=== PATIENT | male | born 1950 | race Caucasian/White ===

== ENCOUNTER 2017-05-30 06:37 | Day surgery (SDC) | payer MEDICARE, BC ==
[~2017-05-30] VITALS: Ht 175.3 cm; Wt 122.7 kg
[~2017-05-30 06:37] MED LIST: ALBU90OI; ALLERCLEAR D-21 EACH PO; ASPI325; ASPI81EC; ATOR40TA; Ativan0.5 MG PO; BACL10 PO; BETAPACE PO; BUDE6HFA INH; CENTRAVITES PO; CEPH500 PO; CLOP75; DICY20 PO; DILTIAZEM 24HR180 M1 PO; DOCU100 PO; DULO30 PO; Dazidox10 MG PO; ELIQUIS5 MG PO; FISH1000 PO; FLONASE ALLERG9.9 ML NS; FLUSAL2505; FLUT.05NI; FLUT44OIA IH; GABA300 PO; HYDACE5 PO; Hair, Skin & N1 EACH PO; LOSA25 PO; METO10 PO; METO50ER PO; MSM1000 MG PO; MULVITMIND PO; NITR100CA PO; OMEP10ER PO; OMEP20ER PO; OXYACE5T PO; OXYACE7.5T PO; PHENA100 PO; PRAVASTATIN SOD10 MG PO; PRED10; PROM25 PO; Percocet 5-3251 EACH PO; Q-Tussin100 MG/5 M PO; SOTO80 PO; Sotalol120 MG PO; TADALAFIL; Tambocor100 MG; Vitamin B-1250 MC1 PO; WARF1; [UNRECOGNIZED DRUG - REMARK]
[2017-05-30] MEDS ORDERED: Vibramycin100 MG PO (15:52)
== END 2017-05-30 13:21 | disposition home or self-care (01) ==
LOC: ORSCSDS 06:37
PROVIDERS: Otolaryngology
PROC: 09DV4ZZ Extraction of Left Ethmoid Sinus, Percutaneous Endoscopic Approach (ICD-10-PCS; principal; 2017-05-30 08:00)
PROC: 8E09XBZ Computer Assisted Procedure of Head and Neck Region (ICD-10-PCS; principal; 2017-05-30 08:00)
PROC: 09DU4ZZ Extraction of Right Ethmoid Sinus, Percutaneous Endoscopic Approach (ICD-10-PCS; principal; 2017-05-30 08:00)
DX: J33.0 Polyp of nasal cavity (principal); J32.4 Chronic pansinusitis; I10 Essential (primary) hypertension; I25.10 Atherosclerotic heart disease of native coronary artery without angina pectoris; G47.33 Obstructive sleep apnea (adult) (pediatric); E66.01 Morbid (severe) obesity due to excess calories; Z68.41 Body mass index [BMI] 40.0-44.9, adult; Z79.899 Other long term (current) drug therapy
CPT/HCPCS: 88305; 88311; C2625; J1100; J1885; J2250; J2370; J2405; J2710; J3010; J3301; J7120

== ENCOUNTER 2017-05-30 13:22 | Emergency (ER) | payer MEDICARE, BC ==
[~2017-05-30] VITALS: Ht 175.3 cm; Wt 122.5 kg
[2017-05-30 14:28] LABS: BASOPHILS ABSOLUTE AUTO 0.02 K/mm3 (0.00-0.23); BASOPHILS PERCENT AUTO 0 % (0-2); EOSINOPHILS ABSOLUTE AUTO 0.01 K/mm3 (0.00-0.68); EOSINOPHILS PERCENT AUTO 0 % (0-6); Hematocrit 40.9 % (37.0-53.0); Hemoglobin 13.6 g/dL (13.5-17.5); IMMATURE GRAN ABSOLUTE AUTO 0.14 K/mm3 (0.00-0.10); IMMATURE GRAN PERCENT AUTO 1 % (0-1); LYMPHOCYTES ABSOLUTE AUTO 0.58 K/mm3 (0.84-5.20); LYMPHOCYTES PERCENT AUTO 5 % (21-46); MONOCYTES ABSOLUTE AUTO 0.42 K/mm3 (0.16-1.47); MONOCYTES PERCENT AUTO 4 % (4-13); Mean Corpuscular HGB 31.1 pg (26.0-34.0); Mean Corpuscular HGB Conc 33.3 g/dL (31.5-36.5); Mean Corpuscular Volume 94 fL (80-100); Mean Platelet Volume 9.9 fL (9.1-12.4); NEUTROPHILS ABSOLUTE AUTO 10.33 K/mm3 (1.96-9.15); NEUTROPHILS PERCENT AUTO 90 % (41-73); Platelet Count 242 K/mm3 (150-400); RDW Coefficient Variation 12.5 % (11.7-14.2); Red Blood Cell Count 4.37 M/mm3 (4.30-5.90)
[2017-05-30 14:47] LABS: Alanine Aminotransfer (ALT/SGP 54 U/L (12-78); Albumin/Globulin Ratio 0.9 (0.8-1.8); Alk Phos 76 U/L (50-136); Anion Gap 8 mmol/L (6-16); Aspartate Aminotrans (AST/SGOT 11 U/L (12-37); Bilirubin, Total 0.5 mg/dL (0.1-1.0); Blood Urea Nitrogen 18 mg/dL (8-24); Bun/Creatinine Ratio 18.2 (12.0-20.0); CO2, Blood 28 mmol/L (21-32); Calcium, Blood 7.8 mg/dL (8.5-10.1); Chloride, Blood 103 mmol/L (98-108); Creatinine, Blood 0.99 mg/dL (0.60-1.20); Globulin, Blood 3.3 g/dL (2.2-4.0); Glomerular Filtration Rate >60 (60-); Glucose, Blood 170 mg/dL (70-99); Sodium, Blood 139 mmol/L (136-145); Total Protein, Blood 6.3 g/dL (6.4-8.2); Troponin I <0.015 ng/mL (0.000-0.040)
[2017-05-30] MEDS ORDERED: Vibramycin100 MG PO (15:52)
== END 2017-05-30 16:10 | disposition home or self-care (01) ==
LOC: ER 13:22
PROVIDERS: Emergency Medicine
DX: J18.9 Pneumonia, unspecified organism (principal); R09.02 Hypoxemia; I10 Essential (primary) hypertension; I48.91 Unspecified atrial fibrillation; Z91.010 Allergy to peanuts; Z91.048 Other nonmedicinal substance allergy status; Z79.899 Other long term (current) drug therapy
CPT/HCPCS: 36415; 71046; 80053; 84484; 85025; 93005; 93010; 99283

== ENCOUNTER 2018-05-23 08:10 | Inpatient (IN) | payer MEDICARE, BC ==
[~2018-05-23] VITALS: Ht 185.4 cm; Wt 123.4 kg
[~2018-05-23 08:10] MED LIST changes: +AZIT250 PO; +Omeprazole20 M1 PO; +Vibramycin100 MG PO
--- NOTE | 2018-05-23 08:48 | NUR ---
History, Chart, Medications and Allergies reviewed before start of procedure. Patient confirms NPO status and agrees with scheduled surgery. Patinet confirms no known drug allergies. Patient reports completing Chlorhexadine shower X4 days prior to admission to hospital.
--- NOTE | 2018-05-23 09:00 | NUR ---
Lungs clear T/O to Auscultation.
--- NOTE | 2018-05-23 10:30 | NUR ---
05/23/18 1030 Perfecto Miller 3GM GIVEN IVPB AT 0956
--- NOTE | 2018-05-23 12:25 | NUR ---
WAITING FOR XRAYREPORT TO SYBIL PT WITH EYES CLOSED RESP E/U
--- NOTE | 2018-05-23 13:18 | NUR ---
PT ARRIVED TO THE ROOM AT APPROXIMATELY 1240. PT ALERT AND ORIENTED UPON ARRIVAL TO THE ROOM. PT DENIES PAIN AT THIS TIME. HE IS ABLE TO WIGGLE HIS TOES BUT CONTINUES TO HAVE DECREASED SENSATION. WILL CONTINUE TO MONITOR.
--- NOTE | 2018-05-23 13:43 | NUR ---
PT MEDICATED PER EMAR ORDERS. EATING JELLO AND CRACKERS. SPOKE WITH ON PHONE. CALL LIGHT IN REACH. WILL CONT TO MONITOR.
--- NOTE | 2018-05-23 17:06 | NUR ---
SHIFT SUMMARY PAIN HAS BEEN MANAGED WITH PO PAIN MEDICATION POST OP. PT IS TOLERATING PO. PT STILL REPORTS SOME TINGLING TO BLE BUT MOVES THEM WELL. PT WILL HAVE THERAPY TOMORROW MORNING FOR THE FIRST TIME. PT HAS VOIDED X1 AND WAS INCONTINENET AFTER REFUSING A STRAIGHT CATH. VSS. REPORT GIVEN TO SARATH BLACKMON.
[2018-05-24 05:38] LABS: BASOPHILS ABSOLUTE AUTO 0.01 K/mm3 (0.00-0.23); BASOPHILS PERCENT AUTO 0 % (0-2); EOSINOPHILS ABSOLUTE AUTO 0.11 K/mm3 (0.00-0.68); EOSINOPHILS PERCENT AUTO 2 % (0-6); Hematocrit 38.6 % (37.0-53.0); IMMATURE GRAN ABSOLUTE AUTO 0.03 K/mm3 (0.00-0.10); IMMATURE GRAN PERCENT AUTO 0 % (0-1); LYMPHOCYTES ABSOLUTE AUTO 1.12 K/mm3 (0.84-5.20); LYMPHOCYTES PERCENT AUTO 15 % (21-46); MONOCYTES ABSOLUTE AUTO 0.94 K/mm3 (0.16-1.47); MONOCYTES PERCENT AUTO 13 % (4-13); Mean Corpuscular HGB Conc 33.7 g/dL (31.5-36.5); Mean Platelet Volume 10.1 fL (9.1-12.4); NEUTROPHILS ABSOLUTE AUTO 5.34 K/mm3 (1.96-9.15); NEUTROPHILS PERCENT AUTO 71 % (41-73); Platelet Count 173 K/mm3 (150-400); RDW Coefficient Variation 12.2 % (11.7-14.2); RDW Standard Deviation 40.9 fL (35.1-46.3); White Blood Cell Count 7.55 K/mm3 (4.00-11.30)
[2018-05-24 05:40] LABS: Mean Corpuscular Volume 92 fL (80-100)
[2018-05-24 06:00] LABS: Anion Gap 3 mmol/L (6-16); Blood Urea Nitrogen 13 mg/dL (8-24); Bun/Creatinine Ratio 11.7 (12.0-20.0); CO2, Blood 30 mmol/L (21-32); Calcium, Blood 7.9 mg/dL (8.5-10.1); Chloride, Blood 104 mmol/L (98-108); Creatinine, Blood 1.11 mg/dL (0.60-1.20); Glomerular Filtration Rate >60 (60-); Glucose, Blood 121 mg/dL (70-99); Potassium, Blood 4.1 mmol/L (3.5-5.5); Sodium, Blood 137 mmol/L (136-145)
--- NOTE | 2018-05-24 10:08 | NUR ---
DR CONNOR NOTIFIED OF PT "FEELING LIKE GOING TO PASS OUT". VSS. PT SINCE THEN PT HAS HAD NAP AND FEELS BETTER AT THIS TIME AFTER HAVING NAUSEA MEDICATION AND TAKING SHORT NAP. REPORTS TO INCREASE IVF TO 500/HR FOR ONE HOUR THEN RESUME IVF RATE.
--- NOTE | 2018-05-24 10:14 | NUR ---
IVF INCREASED ORDERED.
--- NOTE | 2018-05-24 12:21 | NUR ---
PT REPORTED TO HAVE NAUSEA AND FEEL DIZZY WITH THERAPY. PT BEEN BACK TO BED. IVF BACK IN PLACE. PT LYING DOWN. PT REPORTS FEELING BETTER. DENIES ANY NAUSEA OR DIZZINESS AT THIS TIME.
--- NOTE | 2018-05-25 06:32 | NUR ---
SHIFT SUMMARY: PT POD #2 RT TKA. PAIN MANAGED WITH SCHED TORADOL AND TYLENOL. NOT GIVEN OXY BECAUSE C/O NAUSEA AND DIZZINESS. GIVEN ZOFRAN ONCE. OOB W/FWW. OLGA ACTIVITY WELL. USING URINAL. VOIDING ADEQUATE AMT. SALINE LOCKED. OLGA REG DIET. HEMOVAC DRAINING SANGUINOUS FLUID. TOTAL OUTPUT OF 78 ML.
--- NOTE | 2018-05-25 09:41 | NUR ---
JACOB HELD PER DR CONNOR.
[2018-05-25 10:11] LABS: BASOPHILS ABSOLUTE AUTO 0.02 K/mm3 (0.00-0.23); BASOPHILS PERCENT AUTO 0 % (0-2); EOSINOPHILS ABSOLUTE AUTO 0.28 K/mm3 (0.00-0.68); EOSINOPHILS PERCENT AUTO 4 % (0-6); Hematocrit 36.6 % (37.0-53.0); Hemoglobin 12.3 g/dL (13.5-17.5); IMMATURE GRAN ABSOLUTE AUTO 0.03 K/mm3 (0.00-0.10); IMMATURE GRAN PERCENT AUTO 1 % (0-1); LYMPHOCYTES ABSOLUTE AUTO 1.11 K/mm3 (0.84-5.20); LYMPHOCYTES PERCENT AUTO 17 % (21-46); MONOCYTES ABSOLUTE AUTO 0.85 K/mm3 (0.16-1.47); MONOCYTES PERCENT AUTO 13 % (4-13); Mean Corpuscular HGB 31.3 pg (26.0-34.0); Mean Corpuscular HGB Conc 33.6 g/dL (31.5-36.5); Mean Corpuscular Volume 93 fL (80-100); Mean Platelet Volume 9.9 fL (9.1-12.4); NEUTROPHILS ABSOLUTE AUTO 4.36 K/mm3 (1.96-9.15); NEUTROPHILS PERCENT AUTO 66 % (41-73); Platelet Count 186 K/mm3 (150-400); RDW Coefficient Variation 12.1 % (11.7-14.2); RDW Standard Deviation 41.9 fL (35.1-46.3); Red Blood Cell Count 3.93 M/mm3 (4.30-5.90); White Blood Cell Count 6.65 K/mm3 (4.00-11.30)
[2018-05-25] MEDS ORDERED: HYDR1TAB94 PO (11:36)
--- NOTE | 2018-05-25 14:20 | NUR ---
OTHER RN MARY ASSUMING CARE OF PT AT THIS TIME, REPORT BEEN GIVEN.
--- NOTE | 2018-05-25 15:22 | NUR ---
pt discharged to home with spouse. Instructions reviewed. Dressings to knee and drain site remain clean and dry at this time.
== END 2018-05-25 15:02 | disposition home or self-care (01) | DRG 470 ==
LOC: ORSCMMR 08:10 → ORD 10:00 → ORSCMMR 10:00 → SURS 13:17 → ORSCMMR 05-24 08:10 → SURS 05-24 08:10
PROVIDERS: ADMIT Orthopaedic Surgery
PROC: 0SRC0JA Replacement of Right Knee Joint with Synthetic Substitute, Uncemented, Open Approach (ICD-10-PCS; principal; 2018-05-23 10:00)
DX: M17.11 Unilateral primary osteoarthritis, right knee (principal); I48.91 Unspecified atrial fibrillation; I25.10 Atherosclerotic heart disease of native coronary artery without angina pectoris; E78.5 Hyperlipidemia, unspecified; K21.9 Gastro-esophageal reflux disease without esophagitis; I10 Essential (primary) hypertension; G47.33 Obstructive sleep apnea (adult) (pediatric); E66.9 Obesity, unspecified; Z68.36 Body mass index [BMI] 36.0-36.9, adult; Z95.5 Presence of coronary angioplasty implant and graft; Z91.010 Allergy to peanuts; Z79.01 Long term (current) use of anticoagulants; Z79.899 Other long term (current) drug therapy; Z87.891 Personal history of nicotine dependence
CPT/HCPCS: 36415; 73560-RT; 80048; 85025; 86850; 86900; 86901; 88300; 97110; 97116; 97162; 97530; C1776; J0171; J0690; J0735; J1170; J1885; J2250; J2405; J2795; J7120

== ENCOUNTER 2020-06-10 14:28 | Emergency (ER) | payer MEDICARE, BC ==
[~2020-06-10] VITALS: Ht 175.3 cm; Wt 120.2 kg
[~2020-06-10 14:28] MED LIST changes: +HYDR1TAB94 PO
[2020-06-10 15:35] LABS: BASOPHILS ABSOLUTE AUTO 0.02 K/mm3 (0.00-0.23); BASOPHILS PERCENT AUTO 0 % (0-2); EOSINOPHILS ABSOLUTE AUTO 0.25 K/mm3 (0.00-0.68); EOSINOPHILS PERCENT AUTO 5 % (0-6); Hematocrit 45.4 % (37.0-53.0); Hemoglobin 15.4 g/dL (13.5-17.5); IMMATURE GRAN ABSOLUTE AUTO 0.01 K/mm3 (0.00-0.10); IMMATURE GRAN PERCENT AUTO 0 % (0-1); LYMPHOCYTES ABSOLUTE AUTO 1.63 K/mm3 (0.84-5.20); LYMPHOCYTES PERCENT AUTO 30 % (21-46); MONOCYTES PERCENT AUTO 9 % (4-13); Mean Corpuscular HGB 31.3 pg (26.0-34.0); Mean Corpuscular HGB Conc 33.9 g/dL (31.5-36.5); Mean Corpuscular Volume 92 fL (80-100); NEUTROPHILS ABSOLUTE AUTO 3.11 K/mm3 (1.96-9.15); NEUTROPHILS PERCENT AUTO 56 % (41-73); Platelet Count 210 K/mm3 (150-400); RDW Coefficient Variation 11.9 % (11.7-14.2); RDW Standard Deviation 41.1 fL (35.1-46.3); Red Blood Cell Count 4.92 M/mm3 (4.30-5.90); White Blood Cell Count 5.52 K/mm3 (4.00-11.30)
[2020-06-10 15:59] LABS: Alanine Aminotransfer (ALT/SGP 43 U/L (12-78); Albumin, Blood 3.4 g/dL (3.4-5.0); Alk Phos 93 U/L (50-136); Anion Gap 5 mmol/L (6-16); Aspartate Aminotrans (AST/SGOT 25 U/L (12-37); Bilirubin, Total 0.8 mg/dL (0.1-1.0); Blood Urea Nitrogen 15 mg/dL (8-24); CO2, Blood 28 mmol/L (21-32); Calcium, Blood 8.5 mg/dL (8.5-10.1); Chloride, Blood 109 mmol/L (98-108); Creatinine, Blood 1.07 mg/dL (0.60-1.20); Globulin, Blood 3.4 g/dL (2.2-4.0); Glomerular Filtration Rate >60 (60-); Glucose, Blood 104 mg/dL (70-99); Potassium, Blood 3.9 mmol/L (3.5-5.5); Sodium, Blood 142 mmol/L (136-145); Total Protein, Blood 6.8 g/dL (6.4-8.2); Troponin I <0.015 ng/mL (0.000-0.040)
== END 2020-06-10 19:29 | disposition left against medical advice (07) ==
LOC: ER 14:28
PROVIDERS: Physician Assistant
DX: R20.2 Paresthesia of skin (principal); M62.81 Muscle weakness (generalized); Z53.21 Procedure and treatment not carried out due to patient leaving prior to being seen by health care provider; Z79.01 Long term (current) use of anticoagulants; Z79.891 Long term (current) use of opiate analgesic; Z79.899 Other long term (current) drug therapy
CPT/HCPCS: 36415; 70450; 80053; 84484; 85025; 93005; 93010; 99284-25

== ENCOUNTER 2020-11-21 07:10 | Observation (INO) | payer MEDICARE, BC ==
[~2020-11-21] VITALS: Ht 175.3 cm; Wt 113.4 kg
[2020-11-21 07:41] LABS: BASOPHILS ABSOLUTE AUTO 0.01 K/mm3 (0.00-0.23); BASOPHILS PERCENT AUTO 0 % (0-2); EOSINOPHILS ABSOLUTE AUTO 0.01 K/mm3 (0.00-0.68); EOSINOPHILS PERCENT AUTO 0 % (0-6); Hematocrit 44.1 % (37.0-53.0); Hemoglobin 14.8 g/dL (13.5-17.5); IMMATURE GRAN ABSOLUTE AUTO 0.01 K/mm3 (0.00-0.10); IMMATURE GRAN PERCENT AUTO 0 % (0-1); LYMPHOCYTES ABSOLUTE AUTO 0.69 K/mm3 (0.84-5.20); LYMPHOCYTES PERCENT AUTO 25 % (21-46); MONOCYTES ABSOLUTE AUTO 0.15 K/mm3 (0.16-1.47); MONOCYTES PERCENT AUTO 6 % (4-13); Mean Corpuscular HGB Conc 33.6 g/dL (31.5-36.5); Mean Corpuscular Volume 93 fL (80-100); Mean Platelet Volume 9.6 fL (9.1-12.4); NEUTROPHILS ABSOLUTE AUTO 1.85 K/mm3 (1.96-9.15); NEUTROPHILS PERCENT AUTO 68 % (41-73); Platelet Count 150 K/mm3 (150-400); RDW Coefficient Variation 12.1 % (11.7-14.2); RDW Standard Deviation 41.6 fL (35.1-46.3); Red Blood Cell Count 4.77 M/mm3 (4.30-5.90); White Blood Cell Count 2.72 K/mm3 (4.00-11.30)
[2020-11-21 08:09] LABS: Albumin/Globulin Ratio 0.8 (0.8-1.8); Bilirubin, Total 0.5 mg/dL (0.1-1.0); Bun/Creatinine Ratio 9.7 (12.0-20.0); Calcium, Blood 7.9 mg/dL (8.5-10.1); Creatinine, Blood 1.24 mg/dL (0.60-1.20); Globulin, Blood 3.8 g/dL (2.2-4.0); Potassium, Blood 3.5 mmol/L (3.5-5.5); Total Protein, Blood 6.8 g/dL (6.4-8.2)
[2020-11-21 08:12] LABS: C-Reactive Protein, High Sens. 31.9 mg/L (0.000-3.000)
[2020-11-21 08:30] LABS: SARS-Cov-2 (COVID-19) PCR, MMC POSITIVE (NEGATIVE)
--- NOTE | 2020-11-21 18:13 | NUR ---
PT PLEASANT TODAY. NO C/O CHEST PAIN OR PRESSURE. SENIOR OPERATIONS MANAGER IN TO SEE THIS AFT. DR STEPHANIE WILL BE REVIEWING FILES AND WILL PLACE ORDERS IF NECESSARY. DR FISHER AND PT STATE JUST HAD ON 3RD(?) DC DR FISHER. REQUEST HE ADVISE FUR SURE. PT ALSO STATES USES CPAP WITH 4 L CPAP NITES. CALLED RT FOR SETUP. BED IN LOW POSITION, CALL LITE IN REACH, CALLS APPROP
--- NOTE | 2020-11-21 18:34 | NUR ---
PT PLEASANT TODAY SINCE ADMIT. DOES STATES FEELS SOME BETTER. IS DOUGLAS. HEARING AIDES AT HOME. 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 IS NOT ON O2. DID CALL RT FOR CONT BIOX PLACEMENT. PT STATES IS STILL SOME WEAK IN LEGS. O2 SATS WNL. ON RA. BIG ISSUE FOR LIZANDRO HAS BEEN HIS DRY COUGH. HURTS RIBS. TRIED THE CODEINE COUGH MED. STATES NOT MUCH BETTER. TRIED THE BRIAN PEARLS. PENDING RESULTS FROM PT. HEADACHE SOME BETTER WITH THE TYLENOL. BED IN LOW POSITION, CALL LITE IN REACH, CALLS APPROP
[2020-11-22 05:35] LABS: Hematocrit 40.5 % (37.0-53.0); Hemoglobin 13.4 g/dL (13.5-17.5); Mean Corpuscular HGB 30.7 pg (26.0-34.0); Mean Corpuscular HGB Conc 33.1 g/dL (31.5-36.5); Mean Corpuscular Volume 93 fL (80-100); Platelet Count 171 K/mm3 (150-400); RDW Coefficient Variation 12.1 % (11.7-14.2); RDW Standard Deviation 41.3 fL (35.1-46.3); Red Blood Cell Count 4.37 M/mm3 (4.30-5.90)
[2020-11-22 05:58] LABS: Anion Gap 6 mmol/L (6-16); Blood Urea Nitrogen 18 mg/dL (8-24); CO2, Blood 24 mmol/L (21-32); Calcium, Blood 8.2 mg/dL (8.5-10.1); Chloride, Blood 108 mmol/L (98-108); Glomerular Filtration Rate >60 (60-); Glucose, Blood 124 mg/dL (70-99); Potassium, Blood 4.4 mmol/L (3.5-5.5); Sodium, Blood 138 mmol/L (136-145)
--- NOTE | 2020-11-22 09:30 | NUR ---
PT PLEASANT COOP A/O. STATES IS IMPROVING. STILL PERSISTANT HACKING COUGH. MED WITH BRIAN PEARLS AND COUGH DROPS. PT STATES SOME HELP. H/R IRREG, NO MURMER NOTED. PER TELE AFIB AT 93. LUNGS CLEAR UPPER CRACKLES BASES AND MID. ON R/A. O2 STABLE >95%. RESP EASY, UNLABORED. BT X4 LAST BM YEST OR DAY BEFORE. VIODS BATHROOM. INDEPENDANT IN ROOM. BED IN LOW POSITION, CALL LITE IN REACH, CALLS APPROP
[2020-11-22] MEDS ORDERED: DEXA6 PO (11:58)
[2020-11-22] MEDS ORDERED: Tessalon200 MG PO (11:58)
--- NOTE | 2020-11-22 15:33 | NUR ---
DISCHARGE REVIEWED WITHPT VERBALIZED UNDERSTANDING MEDS AND APTS. IV PULLED INTACT. TELE REMOVED AND RETURNED . WHEELED PT TO DOOR AT 1315
== END 2020-11-22 15:12 | disposition home or self-care (01) ==
LOC: ER 07:10 → MEDS 07:11 → ERHOLD 07:11 → ER 09:11 → ERHOLD 09:11 → MEDS 12:07
PROVIDERS: Emergency Medicine; Nurse Practitioner Acute Care; ADMIT Internal Medicine
DX: U07.1 COVID-19 (principal); J12.82 Pneumonia due to coronavirus disease 2019; N17.9 Acute kidney failure, unspecified; G47.33 Obstructive sleep apnea (adult) (pediatric); I48.91 Unspecified atrial fibrillation; E78.5 Hyperlipidemia, unspecified; I25.10 Atherosclerotic heart disease of native coronary artery without angina pectoris; Z95.5 Presence of coronary angioplasty implant and graft; Z79.899 Other long term (current) drug therapy; Z79.01 Long term (current) use of anticoagulants; Z88.8 Allergy status to other drugs, medicaments and biological substances
CPT/HCPCS: 36415; 71045; 80048; 80053; 82728; 83615; 83735; 84443; 84484; 85025; 85027; 86141; 93005; 93010; 94660; 94762; 96365; 96375; 96376; 99285-25; A9270; G0378; J1100; J7030; J7040; U0004

== ENCOUNTER 2021-06-11 10:53 | Emergency (ER) | payer MEDICARE, BC ==
[~2021-06-11] VITALS: Ht 175.3 cm; Wt 117.5 kg
[~2021-06-11 10:53] MED LIST changes: +DEXA6 PO; +Tessalon200 MG PO
[2021-06-11 11:44] LABS: BASOPHILS ABSOLUTE AUTO 0.02 K/mm3 (0.00-0.23); BASOPHILS PERCENT AUTO 0 % (0-2); EOSINOPHILS ABSOLUTE AUTO 0.19 K/mm3 (0.00-0.68); EOSINOPHILS PERCENT AUTO 4 % (0-6); Hematocrit 42.9 % (37.0-53.0); Hemoglobin 14.6 g/dL (13.5-17.5); IMMATURE GRAN ABSOLUTE AUTO 0.01 K/mm3 (0.00-0.10); IMMATURE GRAN PERCENT AUTO 0 % (0-1); LYMPHOCYTES ABSOLUTE AUTO 1.09 K/mm3 (0.84-5.20); LYMPHOCYTES PERCENT AUTO 21 % (21-46); MONOCYTES ABSOLUTE AUTO 0.65 K/mm3 (0.16-1.47); MONOCYTES PERCENT AUTO 13 % (4-13); Mean Corpuscular HGB 30.5 pg (26.0-34.0); Mean Corpuscular Volume 90 fL (80-100); Mean Platelet Volume 9.5 fL (9.1-12.4); NEUTROPHILS ABSOLUTE AUTO 3.22 K/mm3 (1.96-9.15); NEUTROPHILS PERCENT AUTO 62 % (41-73); Platelet Count 218 K/mm3 (150-400); RDW Standard Deviation 42.8 fL (35.1-46.3); Red Blood Cell Count 4.78 M/mm3 (4.30-5.90); White Blood Cell Count 5.18 K/mm3 (4.00-11.30)
[2021-06-11 12:01] LABS: Alanine Aminotransfer (ALT/SGP 32 U/L (12-78); Albumin, Blood 3.4 g/dL (3.4-5.0); Albumin/Globulin Ratio 1.1 (0.8-1.8); Alk Phos 66 U/L (50-136); Anion Gap 3 mmol/L (6-16); Aspartate Aminotrans (AST/SGOT 16 U/L (12-37); Bilirubin, Total 0.6 mg/dL (0.1-1.0); Blood Urea Nitrogen 15 mg/dL (8-24); Bun/Creatinine Ratio 13.9 (12.0-20.0); CO2, Blood 29 mmol/L (21-32); Calcium, Blood 8.8 mg/dL (8.5-10.1); Chloride, Blood 109 mmol/L (98-108); Creatinine, Blood 1.08 mg/dL (0.60-1.20); Globulin, Blood 3.1 g/dL (2.2-4.0); Glomerular Filtration Rate >60 (60-); Glucose, Blood 102 mg/dL (70-99); Potassium, Blood 3.8 mmol/L (3.5-5.5); Sodium, Blood 141 mmol/L (136-145); Total Protein, Blood 6.5 g/dL (6.4-8.2)
== END 2021-06-11 13:15 | disposition home or self-care (01) ==
LOC: ER 10:53
PROVIDERS: Emergency Medicine
DX: M47.812 Spondylosis without myelopathy or radiculopathy, cervical region (principal); I25.10 Atherosclerotic heart disease of native coronary artery without angina pectoris; I48.91 Unspecified atrial fibrillation; I10 Essential (primary) hypertension; F17.210 Nicotine dependence, cigarettes, uncomplicated; Z79.01 Long term (current) use of anticoagulants; Z79.899 Other long term (current) drug therapy; Z88.8 Allergy status to other drugs, medicaments and biological substances
CPT/HCPCS: 36415; 71045; 80053; 85025; 93005; 93010; 99284-25

== ENCOUNTER → 2021-10-07 | Outpatient (CLI) | payer MEDICARE, BC | LOC: PLD 13:51 → LAB SHORT 13:51 | DX: D48.5 Neoplasm of uncertain behavior of skin (principal) | CPT/HCPCS: 88341; 88342 ==

== ENCOUNTER 2022-03-27 19:11 | Emergency (ER) | payer MEDICARE, BC ==
[~2022-03-27] VITALS: Ht 175.3 cm; Wt 120.2 kg
[2022-03-27 19:57] LABS: BASOPHILS ABSOLUTE AUTO 0.03 K/mm3 (0.00-0.23); BASOPHILS PERCENT AUTO 0 % (0-2); EOSINOPHILS ABSOLUTE AUTO 0.04 K/mm3 (0.00-0.68); EOSINOPHILS PERCENT AUTO 1 % (0-6); Hematocrit 42.1 % (37.0-53.0); Hemoglobin 14.6 g/dL (13.5-17.5); IMMATURE GRAN ABSOLUTE AUTO 0.03 K/mm3 (0.00-0.10); IMMATURE GRAN PERCENT AUTO 0 % (0-1); LYMPHOCYTES ABSOLUTE AUTO 1.42 K/mm3 (0.84-5.20); LYMPHOCYTES PERCENT AUTO 17 % (21-46); MONOCYTES ABSOLUTE AUTO 0.78 K/mm3 (0.16-1.47); MONOCYTES PERCENT AUTO 10 % (4-13); Mean Corpuscular HGB 31.6 pg (26.0-34.0); Mean Corpuscular HGB Conc 34.7 g/dL (31.5-36.5); Mean Corpuscular Volume 91 fL (80-100); Mean Platelet Volume 9.6 fL (9.1-12.4); NEUTROPHILS ABSOLUTE AUTO 5.88 K/mm3 (1.96-9.15); NEUTROPHILS PERCENT AUTO 72 % (41-73); Platelet Count 218 K/mm3 (150-400); RDW Coefficient Variation 12.7 % (11.7-14.2); RDW Standard Deviation 41.6 fL (35.1-46.3); Red Blood Cell Count 4.62 M/mm3 (4.30-5.90); White Blood Cell Count 8.18 K/mm3 (4.00-11.30)
[2022-03-27 20:06] LABS: Albumin, Blood 3.4 g/dL (3.4-5.0); Albumin/Globulin Ratio 1.1 (0.8-1.8); Bilirubin, Total 0.4 mg/dL (0.1-1.0); Bun/Creatinine Ratio 14.9 (12.0-20.0); Calcium, Blood 8.8 mg/dL (8.5-10.1); Creatinine, Blood 1.34 mg/dL (0.60-1.20); Globulin, Blood 3.1 g/dL (2.2-4.0); Potassium, Blood 4.2 mmol/L (3.5-5.5); Total Protein, Blood 6.5 g/dL (6.4-8.2)
== END 2022-03-27 22:48 | disposition home or self-care (01) ==
LOC: ER 19:11
PROVIDERS: Student in an Organized Health Care Education/Training Program
DX: R42 Dizziness and giddiness (principal); I48.91 Unspecified atrial fibrillation; Z79.899 Other long term (current) drug therapy; Z79.01 Long term (current) use of anticoagulants; Z88.8 Allergy status to other drugs, medicaments and biological substances; I25.10 Atherosclerotic heart disease of native coronary artery without angina pectoris; F17.210 Nicotine dependence, cigarettes, uncomplicated
CPT/HCPCS: 36415; 71045; 80053; 83735; 83880; 84484; 85025; 93005; 93010

== ENCOUNTER 2022-07-01 06:56 | Day surgery (SDC) | payer MEDICARE, BC ==
[~2022-07-01] VITALS: Ht 175.3 cm; Wt 121.9 kg
[2022-07-01] MEDS ORDERED: Crestor20 MG PO (07:18)
[2022-07-01] MEDS ORDERED: TYLENOL PM PO (07:22)
--- NOTE | 2022-07-01 10:05 | NUR ---
ASSUMED CARE OF PT. PT AWAKE AND ORIENTED, PLEASENT AND COOPERATIVE; DENIES PAIN POST PROCEDURE. MONITOR AFIB 60'S, B/P 162/110, SPO2 96% RA, AFEBRILE. R RADIAL NO SWELLING/HEMATOMA, TR BAND IN PLACE; RUE POSITIVE PLEUTH POST TR BAND PLACEMENT. L RADIAL NO SWELLING/HEMATOMA, TR BAND IN PLACE; LUE POSITIVE PLEUTH POST TR BAND PLACEMENT (SPOT CHECKED). PT HAS NATALYA WRIST IMMOBILIZERS IN PLACE.
--- NOTE | 2022-07-01 10:50 | NUR ---
DR DAVID NOTIFIED OF PT'S B/P, ORDERS RECEIVED; ADMINISTERED DILTIAZEM 180 MG AND LOSARTAN 25 MG.
[2022-07-01] MEDS ORDERED: FURO40 PO (11:00)
--- NOTE | 2022-07-01 11:50 | NUR ---
L AND R WRIST TR BANDS FULLY DEFLATED, NO SWELLING/HEMATOMAS AT SITE; WRIST IMMOBILIZERS REMAIN IN PLACE.
--- NOTE | 2022-07-01 12:25 | NUR ---
PT AMB TO BATHROOM, GAIT STEADY, VOIDED QS; SITES UNCHANGED WITH ACTIVITY. PT TAKING LUNCH WITHOUT ISSUE.
--- NOTE | 2022-07-01 12:26 | NUR ---
PATIENT UP AND OFF MONITOR TO THE RESTROOM. BACK TO RECLINER AND AND LUNCH SERVED. NO PAIN. NO BLEEDING FROM EITHER WRIST.
--- NOTE | 2022-07-01 12:50 | NUR ---
PT DRESSED SELF WITHOUT ISSUE, SITES UNCHANGED. NATALYA TR BANDS REMOVED, CLOTH DOTS AND WRIST IMMOBILIZERS PLACED; IV REMOVED-CANNULA INTACT. PT DECLINED SLING.
--- NOTE | 2022-07-01 13:02 | NUR ---
PT RECEIVED DISCHARGE INSTRUCTIONS, LAB ORDER, MED LIST AND AFTER CARE INSTRUCTIONS; VERBALIZED GOOD UNDERSTANDING. PT LEFT FACILITY VIA W/C, CONDITION STABLE.
== END 2022-07-01 14:12 | disposition home or self-care (01) ==
LOC: MHTC 06:56
DX: R07.89 Other chest pain (principal); R06.00 Dyspnea, unspecified; R00.2 Palpitations; I47.29 Other ventricular tachycardia; Z95.5 Presence of coronary angioplasty implant and graft; I25.42 Coronary artery dissection; E78.5 Hyperlipidemia, unspecified; F32.A Depression, unspecified; N18.31 Chronic kidney disease, stage 3a; I12.9 Hypertensive chronic kidney disease with stage 1 through stage 4 chronic kidney disease, or unspecified chronic kidney disease
CPT/HCPCS: 75710; 76937; 93458; 99152; 99153; A9270; C1769; C1887; C1894; J1644; J2250; J3010; J7030; J7050; Q9967

== ENCOUNTER 2022-08-24 09:05 | Observation (INO) | payer MEDICARE, BC ==
[~2022-08-24] VITALS: Ht 175.3 cm; Wt 122.5 kg
[~2022-08-24 09:05] MED LIST changes: +Crestor20 MG PO; +FURO40 PO; +TYLENOL PM PO
[2022-08-24 10:01] LABS: BASOPHILS ABSOLUTE AUTO 0.01 K/mm3 (0.00-0.23); BASOPHILS PERCENT AUTO 0 % (0-2); EOSINOPHILS ABSOLUTE AUTO 0.14 K/mm3 (0.00-0.68); EOSINOPHILS PERCENT AUTO 2 % (0-6); Hematocrit 40.6 % (37.0-53.0); Hemoglobin 13.8 g/dL (13.5-17.5); IMMATURE GRAN ABSOLUTE AUTO 0.02 K/mm3 (0.00-0.10); IMMATURE GRAN PERCENT AUTO 0 % (0-1); LYMPHOCYTES ABSOLUTE AUTO 1.45 K/mm3 (0.84-5.20); LYMPHOCYTES PERCENT AUTO 22 % (21-46); MONOCYTES ABSOLUTE AUTO 0.59 K/mm3 (0.16-1.47); MONOCYTES PERCENT AUTO 9 % (4-13); Mean Corpuscular Volume 91 fL (80-100); Mean Platelet Volume 9.7 fL (9.1-12.4); NEUTROPHILS ABSOLUTE AUTO 4.26 K/mm3 (1.96-9.15); NEUTROPHILS PERCENT AUTO 66 % (41-73); Platelet Count 182 K/mm3 (150-400); RDW Coefficient Variation 12.3 % (11.7-14.2); RDW Standard Deviation 40.7 fL (35.1-46.3); Red Blood Cell Count 4.45 M/mm3 (4.30-5.90); White Blood Cell Count 6.47 K/mm3 (4.00-11.30)
[2022-08-24 10:05] LABS: Albumin, Blood 3.2 g/dL (3.4-5.0); Albumin/Globulin Ratio 1.1 (0.8-1.8); Bilirubin, Total 0.7 mg/dL (0.1-1.0); Bun/Creatinine Ratio 15.7 (12.0-20.0); Creatinine, Blood 1.15 mg/dL (0.60-1.20); Globulin, Blood 2.9 g/dL (2.2-4.0); Potassium, Blood 3.7 mmol/L (3.5-5.5); Total Protein, Blood 6.1 g/dL (6.4-8.2)
[2022-08-24 17:29] VITALS: BP 140/89
--- NOTE | 2022-08-24 18:16 | NUR ---
PT A&OX4, CALLS APPROPRIATELY. ADMITTED FOR OBSERVATION B/C PT REPORT OF "CHEST PRESSURE...NOT PAIN". ARRIVED TO MEDICAL FLOOR FROM THE ED AT APPROXIMATELY 1730. PT REPORTS SOB WHEN LYING FLAT IN BED AND WHEN AMBULATORY. VITAL SIGNS STABLE, BUT PT REPORTS "FEELING VERY UNCOMFORTABLE WITH MY AFIB SITUATION". WILL CONTINUE PLAN OF CARE.
[2022-08-24 19:48] VITALS: BP 126/96
[2022-08-25 03:47] VITALS: BP 119/87
--- NOTE | 2022-08-25 03:52 | NUR ---
SHIFT UNREMARKABLE. PT TOOK 2100 MEDICATIONS WITHOUT DIFFICULTY AND HAS SLEPT THROUGH MOST OF REMAINDER OF SHIFT. PLEASANT, AOX4, COOPERATIVE WITH CARE. TELE ON THROUGHOUT SHIFT, NO EVENTS THUS FAR. CPAP HAS BEEN ON WHILE SLEEPING. SATTING WELL. REPORTED "CHEST PRESSURE" BUT DID NOTE THAT IT WAS NOT PAIN AND THAT IT HAD BEEN STEADILY IMPROVING. INDEPENDENT WITHIN ROOM. CALLS APPROPRIATELY. BED LOCKED IN LOWEST POSITION. CALL LIGHT LEFT WITHIN REACH.
[2022-08-25 05:45] LABS: Calcium, Blood 8.7 mg/dL (8.5-10.1); Creatinine, Blood 1.13 mg/dL (0.60-1.20); Potassium, Blood 3.4 mmol/L (3.5-5.5)
[2022-08-25 08:11] VITALS: BP 135/92
[2022-08-25] MEDS ORDERED: POTA20LUD PO (10:11)
[2022-08-25] MEDS ORDERED: POTCHL20ER PO (10:18)
--- NOTE | 2022-08-25 10:23 | NUR ---
DISCHARGE SUMMARY DISCHARGE, FOLLOWUP, AND MEDICATION INSTRUCTIONS GIVEN TO PT. PT VOICED COMPLETE UNDERSTANDING AND HAS NO QUESTIONS AT THIS TIME. IV REMOVED WITH CATHETER TIP INTACT. PT AWAITING RIDE ARRIVAL. WILL CONTINUE TO MONITOR. CALL LIGHT SARA BRODY.
== END 2022-08-25 10:31 | disposition home or self-care (01) ==
LOC: ER 09:05 → MEDS 09:06
PROVIDERS: Emergency Medicine; ADMIT Internal Medicine
DX: R07.89 Other chest pain (principal); E87.6 Hypokalemia; I25.10 Atherosclerotic heart disease of native coronary artery without angina pectoris; I48.20 Chronic atrial fibrillation, unspecified; N18.30 Chronic kidney disease, stage 3 unspecified; I50.30 Unspecified diastolic (congestive) heart failure; G47.33 Obstructive sleep apnea (adult) (pediatric); Z87.891 Personal history of nicotine dependence; Z88.8 Allergy status to other drugs, medicaments and biological substances; Z79.01 Long term (current) use of anticoagulants; Z79.899 Other long term (current) drug therapy
CPT/HCPCS: 36415; 71045; 80048; 80053; 83735; 83880; 84145; 84484; 85025; 93005; 93010; 94660; 94762; A9270; G0378; J1940

== ENCOUNTER → 2023-03-18 | Outpatient (CLI) | payer MEDICARE, BC ==
[~2023-03-18] MED LIST changes: +FURO20 PO; +METO25ER PO; +POTA20LUD PO; +POTCHL20ER PO; +TIOT18 INH
[2023-03-18 11:50] LABS: BASOPHILS ABSOLUTE AUTO 0.01 K/mm3 (0.00-0.23); BASOPHILS PERCENT AUTO 0 % (0-2); EOSINOPHILS ABSOLUTE AUTO 0.01 K/mm3 (0.00-0.68); EOSINOPHILS PERCENT AUTO 0 % (0-6); Hematocrit 48.4 % (37.0-53.0); Hemoglobin 16.7 g/dL (13.5-17.5); IMMATURE GRAN ABSOLUTE AUTO 0.03 K/mm3 (0.00-0.10); IMMATURE GRAN PERCENT AUTO 0 % (0-1); LYMPHOCYTES ABSOLUTE AUTO 0.52 K/mm3 (0.84-5.20); LYMPHOCYTES PERCENT AUTO 8 % (21-46); MONOCYTES ABSOLUTE AUTO 0.59 K/mm3 (0.16-1.47); MONOCYTES PERCENT AUTO 9 % (4-13); Mean Corpuscular HGB 32.1 pg (26.0-34.0); Mean Corpuscular HGB Conc 34.5 g/dL (31.5-36.5); Mean Corpuscular Volume 93 fL (80-100); Mean Platelet Volume 9.4 fL (9.1-12.4); NEUTROPHILS ABSOLUTE AUTO 5.63 K/mm3 (1.96-9.15); NEUTROPHILS PERCENT AUTO 83 % (41-73); Platelet Count 187 K/mm3 (150-400); RDW Coefficient Variation 13.2 % (11.7-14.2); RDW Standard Deviation 44.1 fL (35.1-46.3); Red Blood Cell Count 5.21 M/mm3 (4.30-5.90); White Blood Cell Count 6.79 K/mm3 (4.00-11.30)
[2023-03-18 12:19] LABS: Albumin, Blood 3.4 g/dL (3.4-5.0); Bilirubin, Total 1.2 mg/dL (0.1-1.0); Bun/Creatinine Ratio 15.6 (12.0-20.0); Calcium, Blood 8.5 mg/dL (8.5-10.1); Creatinine, Blood 1.35 mg/dL (0.60-1.20); Globulin, Blood 3.5 g/dL (2.2-4.0); Potassium, Blood 3.6 mmol/L (3.5-5.5); Total Protein, Blood 6.9 g/dL (6.4-8.2)
== END | disposition home or self-care (01) ==
LOC: LAB 11:40 → LAB SHORT 11:40
PROVIDERS: Emergency Medicine
DX: R11.0 Nausea (principal)
CPT/HCPCS: 80053; 83690; 85025

== ENCOUNTER 2024-02-17 06:16 | Inpatient (IN) | payer MEDICARE ==
[2024-02-17] VITALS (19 sets, daily range): BP systolic 104–166; BP diastolic 73–114
[~2024-02-17] VITALS: Ht 175.3 cm; Wt 128.6 kg
[~2024-02-17 06:16] MED LIST changes: +INHALER INH
[2024-02-17] MEDS ORDERED: CeFAZolin Sodium 3,000 MG in NS 100 ML IV SCH (06:25)
[2024-02-17] MEDS ORDERED: OxyCODONE HCL 10 MG TABCR PO SCH (06:25)
[2024-02-17] MEDS ORDERED: Ropivacaine 0.5% HCl/Pf 123.125 MG,EPINEPHrine HCL 0.25 MG,Ketorolac Tromethamine 15 MG... INFIL SCH (06:25)
[2024-02-17] MEDS ORDERED: Chlorhexidine Mouth Care 15 ML UDC MT SCH (06:25)
[2024-02-17] MEDS ORDERED: Lactated Ringer's 1,000 ML IV SCH ×2 (06:25→09:20)
[2024-02-17] MEDS ORDERED: Acetaminophen 500 MG Tab PO SCH ×2 (06:25→16:00)
[2024-02-17] MEDS ORDERED: ANORO ELLIPTA1 EACH INH (06:32)
[2024-02-17] MEDS ORDERED: BUME1 PO (06:35)
[2024-02-17] MEDS ORDERED: Tranexamic Acid 100 ML IV SCH (06:38)
[2024-02-17] MEDS ORDERED: Bupivacaine 0.5% HCl 5 MG/ML 30MLVIAL ONE (07:25)
[2024-02-17] MEDS ORDERED: Famotidine 10 MG/ML 2ML Vial IV ONE (07:25)
[2024-02-17] MEDS ORDERED: Dexamethasone Sod Phos 10 MG/ML 1ML VIAL ONE (07:25)
[2024-02-17] MEDS ORDERED: Lidocaine HCl 2% 20 ML MDV ONE ×2 (07:27→08:17)
--- NOTE | 2024-02-17 07:40 | NUR ---
History, Chart, Medications and Allergies reviewed before start of procedure. Lungs clear T/O to Auscultation. Patient confirms NPO status and agrees with scheduled surgery. Patient reports completing Chlorhexadine shower X2 prior to admission to hospital. Pre-Op teaching done. Pt verbalizes understanding.
[2024-02-17] MEDS ORDERED: propofoL 20 ML IV ONE (08:16)
[2024-02-17] MEDS ORDERED: FentaNYL Citrate 50 MCG/ML 2 ML Injection ONE (08:16)
[2024-02-17] MEDS ORDERED: Rocuronium Bromide 10 MG/ML 5ML Injection IV ONE ×2 (08:18→10:35)
[2024-02-17] MEDS ORDERED: Phenylephrine HCl 10mg/ml 1 ml Vial ONE (08:18)
--- NOTE | 2024-02-17 08:18 | NUR ---
0803 TIME OUT FOR INTERSCALING BLOCK TO R ARM 0817 PROCEDURE END
[2024-02-17] MEDS ORDERED: Ketorolac Tromethamine 30mg Vial ONE (09:00)
[2024-02-17] MEDS ORDERED: HYDROmorphone HCl/Pf 1MG SYR IV PRN ×2 (09:00→09:10)
[2024-02-17] MEDS ORDERED: Docusate Sodium 100 MG Cap PO SCH (09:00)
[2024-02-17] MEDS ORDERED: FLU VACC TS2024-25(6MOS UP)/PF 45 MCG/0.5 ML SYRINGE IM PRN (09:00)
[2024-02-17] MEDS ORDERED: Ondansetron HCl 2 MG / ML 2ML Vial ONE (09:01)
[2024-02-17] MEDS ORDERED: Magnesium Hydroxide Conc 10 ML UDC PO PRN (09:05)
[2024-02-17] MEDS ORDERED: OxyCODONE HCL 5 MG TAB PO PRN ×2 (09:05)
[2024-02-17] MEDS ORDERED: Bisacodyl 10 MG Supp PR PRN (09:10)
[2024-02-17] MEDS ORDERED: Promethazine HCl 25 MG Tab PO PRN (09:10)
[2024-02-17] MEDS ORDERED: DiphenhydrAMINE HCL 25 MG Cap PO PRN (09:10)
[2024-02-17] MEDS ORDERED: Ondansetron HCl 2 MG / ML 2ML Vial IV PRN (09:10)
[2024-02-17] MEDS ORDERED: Prochlorperazine Edisylate 10 mg Vial IV PRN (09:10)
[2024-02-17] MEDS ORDERED: Droperidol 5 mg/2 ml Vial IV PRN (09:15)
[2024-02-17] MEDS ORDERED: Albuterol 2.5 MG/3 ML VIAL INH PRN (09:15)
[2024-02-17] MEDS ORDERED: FentaNYL Citrate 50 MCG/ML 2 ML Injection IV PRN (09:15)
[2024-02-17] MEDS ORDERED: Metoclopramide HCl 5MG / ML 2ML Vial IV PRN (09:20)
--- NOTE | 2024-02-17 09:36 | NUR ---
02/17/24 0936 Cherie Jackson SMALL REDDENED SORE THE SIZE OF A DIME NOTED ON THE PATIENT'S CHEST NEAR MIDLINE PRIOR TO ENTRY INTO THE OR.
[2024-02-17] MEDS ORDERED: Sugammadex Sodium 200 MG/2ML SDV (100 MG/ML) ONE (10:59)
[2024-02-17] MEDS ORDERED: OxyCODONE 5 mg/Acetamin 325 mg TABLET PO PRN (11:45)
[2024-02-17] MEDS ORDERED: Ketorolac Tromethamine 15mg Vial IV SCH (12:00)
--- NOTE | 2024-02-17 13:14 | NUR ---
POST OP S/P LEFT TSA. NERVE BLOCK IN PLACE AND PT DENIES PAIN AT THIS TIME. LEFT SHOULDER IN IMMOBILIZER AND AQUACEL DRESSING IS CDI WITH POLAR PACK IN PLACE. PT ABLE TO WIGGLE FINGERS AND CAP REFILL <3 SECONDS. FINGERS PINK AND WARM. POST OP VS STABLE AND IN PROGRESS. PLANNING TO WEAN O2 TOLERATED. ENCOURAGING DEEP BREATHING. ORIENTED TO ROOM AND CALL LIGHT.
--- NOTE | 2024-02-17 13:23 | NUR ---
ASSUMED CARE OF PT FROM CROPSEY. PT RESTING W/EYES CLOSED. BREATHING E/U. VSS. CALL LIGHT IN REACH.
--- NOTE | 2024-02-17 13:26 | NUR ---
REPORT TO CEDRIC BLACKMON TO ASSUME CARE AT THIS TIME.
--- NOTE | 2024-02-17 15:24 | NUR ---
WILMAN/OT IN TO SEE PT.
--- NOTE | 2024-02-17 15:47 | NUR ---
PT BECAME DIZZY AND NAUSEATED WHILE WORKING WITH OT. LAID PT DOWN. VSS. CHECKED CBG, WHICH WAS STABLE. PT RESTING AT THIS TIME. REPORTS NAUSEA HAS PASSED. CALL LIGHT IN REACH. PT DENIES NEED TO VOID YET.
[2024-02-17] MEDS ORDERED: CeFAZolin Sodium 2,000 MG in NS 100 ML IV SCH (16:40)
--- NOTE | 2024-02-17 17:28 | NUR ---
SUMMARY PT RESTING IN BED. DISCUSSED VOIDING REPEATEDLY WITH PT. PT STATES WILL HAVE TO GET UP TO RESTROOM TO GO. ASKED PT TO GET UP AND STATED HE WILL AT 1800. ADVISED PT DON'T WANT BLADDER TO GET TOO FULL OR WILL HAVE TO CATH. PT STATES WILL REFUSE CATH, STATING ITS "NEVER BEEN A PROBLEM". WHEN PT WAS WORKING WITH OCCUPATIONAL THERAPY, PT BECAME DIZZY AND NAUSEATED. STATED HE THOUGHT IT WAS BECAUSE HE HADN'T EATEN. WE PROVIDED SNACK. PT ATE SMALL AMOUNT OF APPLESAUCE PRIOR TO NAUSEA. NAUSEA QUICKLY PASSED. CHECK CBG FOR SAFETY, WHICH WAS STABLE WERE VS. PT HAS BEEN RESTING IN BED, CALL LIGHT IN REACH, SIPPING WATER. INQUIRED ABOUT DINNER. REITERATED TO PT THAT HE NEEDS TO TRY TO VOID AT 1800 PLANNED.
--- NOTE | 2024-02-17 18:35 | NUR ---
PT AMBULATED TO RESTROOM AND VOIDED/PASSED FLATUS. PT REPORTED FEELING WEAK AND SLIGHTLY DIZZY. NOW BACK TO BED. CALL LIGHT IN REACH.
[2024-02-18 00:58] VITALS: BP 116/83
[2024-02-18 04:15] VITALS: BP 111/77
[2024-02-18 05:12] LABS: BASOPHILS ABSOLUTE AUTO 0.01 K/mm3 (0.00-0.23); BASOPHILS PERCENT AUTO 0 % (0-2); EOSINOPHILS PERCENT AUTO 0 % (0-6); Hematocrit 40.9 % (37.0-53.0); Hemoglobin 13.9 g/dL (13.5-17.5); IMMATURE GRAN ABSOLUTE AUTO 0.05 K/mm3 (0.00-0.10); IMMATURE GRAN PERCENT AUTO 0 % (0-1); LYMPHOCYTES ABSOLUTE AUTO 0.82 K/mm3 (0.84-5.20); LYMPHOCYTES PERCENT AUTO 7 % (21-46); MONOCYTES ABSOLUTE AUTO 1.02 K/mm3 (0.16-1.47); MONOCYTES PERCENT AUTO 9 % (4-13); Mean Corpuscular HGB 31.4 pg (26.0-34.0); Mean Corpuscular Volume 93 fL (80-100); Mean Platelet Volume 9.9 fL (9.1-12.4); NEUTROPHILS ABSOLUTE AUTO 9.85 K/mm3 (1.96-9.15); NEUTROPHILS PERCENT AUTO 84 % (41-73); Platelet Count 184 K/mm3 (150-400); RDW Coefficient Variation 12.1 % (11.7-14.2); RDW Standard Deviation 41.6 fL (35.1-46.3); Red Blood Cell Count 4.42 M/mm3 (4.30-5.90); White Blood Cell Count 11.75 K/mm3 (4.00-11.30)
--- NOTE | 2024-02-18 05:25 | NUR ---
SHIFT SUMMARY POD 1 S/P LEFT SHOULDER TSA. DRESSING CDI, IMMOBILIZER AND POLAR ENEIDA IN PLACE. PAIN MANAGED PER EMAR AND ICE THERAPY. PT AMBULATED SEVERAL TIMES T/O HALLS DURING NIGHT WITH SBA. OLGA PO INTAKE, DENIES N/V. ABLE TO VOID 2X. REPORTS PAIN MEDICATION CAUSED SLIGHT DIZZINESS AND "A LITTLE WEIGHT ON CHEST." EVALUATED BY RT, PT DENIES DISCOMFORT AT THIS TIME. PT UP IN CHAIR AT THIS TIME, HAS CALL LIGHT REACH. WILL CONTINUE TO CARE FOR PATIENT AND GIVE REPORT TO ONCOMING DAY RN
--- NOTE | 2024-02-18 05:38 | NUR ---
MEDICATION NOTE PT REPORTS, "OXY CAUSES AWFUL NIGHT TERRORS" AND REFUSES TO TAKE, DESPITE INCREASED PAIN. PT MEDICATED WITH 0.5MG IV DILAUDID X 1. PLAN TO PASS ON TO DAY RN TO CHANGE PO PAIN MEDICATION.
[2024-02-18 05:43] LABS: Bun/Creatinine Ratio 14.7 (12.0-20.0); Calcium, Blood 8.6 mg/dL (8.5-10.1); Creatinine, Blood 1.16 mg/dL (0.60-1.20); Potassium, Blood 4.8 mmol/L (3.5-5.5)
[2024-02-18 07:23] VITALS: BP 110/70
[2024-02-18] MEDS ORDERED: Metoprolol Succinate 25 MG TABCR PO SCH (09:00)
[2024-02-18] MEDS ORDERED: Rosuvastatin Calcium 10 MG Tab PO SCH (09:00)
[2024-02-18] MEDS ORDERED: Apixaban 5 MG Tab PO SCH (09:00)
[2024-02-18] MEDS ORDERED: Potassium Chloride 20 MEQ TabCR PO SCH (09:00)
[2024-02-18] MEDS ORDERED: ANORO ELLIPTA INHALER INH SCH (09:00)
[2024-02-18] MEDS ORDERED: Losartan Potassium 25 MG Tab PO SCH (09:00)
[2024-02-18] MEDS ORDERED: Bumetanide 1 MG Tab PO SCH (09:00)
[2024-02-18] MEDS ORDERED: Norco 5-325 Ta1 EACH PO (11:34)
--- NOTE | 2024-02-18 13:17 | NUR ---
REPORT RECEIVED VERIFIED. PT UP IN CHAIR FEELING MUCH BETTER AND WAITING TO GO HOME. PT HAS DISCHARGE ORDERS AND ANTICIPATING TO LEAVE ONCE MEDICATION IS FIGURED OUT. TRIPLICIT RECEIVED FROM DR ASENCIO, INSTRUCTIONS GIVEN TO PT, L SHOULDER DRESSING CDI AND ICE PACK AT BEDSIDE. AT BEDSIDE AND DISCHARGE INFORMTION DISCUSSED PT STATES UNDERSTANDING. IV DCED PT DISCHARGED
== END 2024-02-18 11:59 | disposition home or self-care (01) | DRG 483 ==
LOC: ORSCMMR 06:16 → SURS 07:29 → ORSCMMR 07:30 → ORD 07:30 → SURS 12:15
PROVIDERS: ADMIT Orthopaedic Surgery
PROC: 0RRK0JZ Replacement of Left Shoulder Joint with Synthetic Substitute, Open Approach (ICD-10-PCS; principal; 2024-02-17 07:30)
DX: M19.012 Primary osteoarthritis, left shoulder (principal); S46.112D Strain of muscle, fascia and tendon of long head of biceps, left arm, subsequent encounter; I10 Essential (primary) hypertension; E78.5 Hyperlipidemia, unspecified; J43.9 Emphysema, unspecified; Z96.643 Presence of artificial hip joint, bilateral; Z98.890 Other specified postprocedural states; J44.9 Chronic obstructive pulmonary disease, unspecified; G47.33 Obstructive sleep apnea (adult) (pediatric); K21.9 Gastro-esophageal reflux disease without esophagitis; Z87.891 Personal history of nicotine dependence; I25.10 Atherosclerotic heart disease of native coronary artery without angina pectoris; Z95.5 Presence of coronary angioplasty implant and graft; I48.0 Paroxysmal atrial fibrillation; Z79.01 Long term (current) use of anticoagulants; Z79.899 Other long term (current) drug therapy
CPT/HCPCS: 36415; 73030; 80048; 82947; 85025; 94762; 97110; 97116; 97162; 97165; 97535; A9270; J0171; J0690; J0735; J1100; J1171; J1885; J2371; J2405; J2704; J2795; J3010; J7120

== ENCOUNTER 2024-02-20 15:52 | Emergency (ER) | payer MEDICARE ==
[~2024-02-20] VITALS: Ht 175.3 cm; Wt 128.4 kg
[~2024-02-20 15:52] MED LIST changes: +ANORO ELLIPTA1 EACH INH; +BUME1 PO; +Norco 5-325 Ta1 EACH PO
[2024-02-20 16:14] VITALS: BP 106/78
[2024-02-20 16:33] LABS: BASOPHILS ABSOLUTE AUTO 0.02 K/mm3 (0.00-0.23); BASOPHILS PERCENT AUTO 0 % (0-2); EOSINOPHILS ABSOLUTE AUTO 0.11 K/mm3 (0.00-0.68); EOSINOPHILS PERCENT AUTO 2 % (0-6); Hematocrit 40.2 % (37.0-53.0); Hemoglobin 13.6 g/dL (13.5-17.5); IMMATURE GRAN ABSOLUTE AUTO 0.02 K/mm3 (0.00-0.10); IMMATURE GRAN PERCENT AUTO 0 % (0-1); LYMPHOCYTES ABSOLUTE AUTO 0.98 K/mm3 (0.84-5.20); LYMPHOCYTES PERCENT AUTO 17 % (21-46); MONOCYTES ABSOLUTE AUTO 0.71 K/mm3 (0.16-1.47); MONOCYTES PERCENT AUTO 12 % (4-13); Mean Corpuscular HGB 31.9 pg (26.0-34.0); Mean Corpuscular HGB Conc 33.8 g/dL (31.5-36.5); Mean Corpuscular Volume 94 fL (80-100); Mean Platelet Volume 9.8 fL (9.1-12.4); NEUTROPHILS ABSOLUTE AUTO 4.03 K/mm3 (1.96-9.15); NEUTROPHILS PERCENT AUTO 69 % (41-73); Platelet Count 180 K/mm3 (150-400); RDW Coefficient Variation 12.4 % (11.7-14.2); RDW Standard Deviation 42.9 fL (35.1-46.3); Red Blood Cell Count 4.27 M/mm3 (4.30-5.90); White Blood Cell Count 5.87 K/mm3 (4.00-11.30)
[2024-02-20 16:52] LABS: Albumin, Blood 2.9 g/dL (3.4-5.0); Albumin/Globulin Ratio 0.9 (0.8-1.8); Bilirubin, Total 1.2 mg/dL (0.1-1.0); Bun/Creatinine Ratio 8.2 (12.0-20.0); Calcium, Blood 8.4 mg/dL (8.5-10.1); Creatinine, Blood 1.22 mg/dL (0.60-1.20); Globulin, Blood 3.1 g/dL (2.2-4.0); Potassium, Blood 3.9 mmol/L (3.5-5.5)
== END 2024-02-20 18:38 | disposition left against medical advice (07) ==
LOC: ER 15:52
PROVIDERS: Emergency Medicine
DX: Z53.21 Procedure and treatment not carried out due to patient leaving prior to being seen by health care provider (principal)
CPT/HCPCS: 71045; 80053; 84484; 85025; 93005; 93010

== ENCOUNTER 2024-06-26 09:48 | Day surgery (SDC) | payer OTHER ==
[~2024-06-26] VITALS: Ht 175.3 cm; Wt 124.8 kg
[2024-06-26] VITALS (9 sets, daily range): BP systolic 129–181; BP diastolic 77–99
[~2024-06-26 09:48] MED LIST changes: +AMOCLA500; +ATOR20 PO; +DILT30 PO; +ELIQUIS2.5 MG PO; -ELIQUIS5 MG PO; +Percocet 5-3251 EACH
[2024-06-26] MEDS ORDERED: Lactated Ringer's 1,000 ML IV SCH (10:15)
[2024-06-26] MEDS ORDERED: CeFAZolin Sodium 2,000 MG in NS 100 ML IV SCH (10:15)
[2024-06-26] MEDS ORDERED: CeFAZolin Sodium 3,000 MG in NS 100 ML IV SCH (10:50)
--- NOTE | 2024-06-26 11:03 | NUR ---
Ambulatory in Day Surgery Patient confirms NPO status and agrees with scheduled surgery. Patient reports completing Chlorhexadine shower X2 prior to admission to hospital.Pre-Op teaching done. Pt verbalizes understanding. History, Chart, Medications and Allergies reviewed before start of procedure.Patient States Post-Procedure ride home has been arranged.
[2024-06-26] MEDS ORDERED: Amlodipine Bes2.5 MG PO (11:08)
[2024-06-26] MEDS ORDERED: ALBU2.5V5 (11:13)
[2024-06-26] MEDS ORDERED: [UNRECOGNIZED DRUG - REMARK] (11:17)
[2024-06-26] MEDS ORDERED: CeFAZolin Sodium 3,000 MG VIAL ONE (11:39)
[2024-06-26] MEDS ORDERED: Bupivacaine 0.5% HCl 5 MG/ML 30MLVIAL ONE (12:35)
[2024-06-26] MEDS ORDERED: Lidocaine 1%-Epineph 1:200000 30 ML SDV ONE (12:36)
[2024-06-26] MEDS ORDERED: propofoL 20 ML IV ONE (13:39)
[2024-06-26] MEDS ORDERED: FentaNYL Citrate 50 MCG/ML 2 ML Injection ONE (13:39)
[2024-06-26] MEDS ORDERED: Ondansetron HCl 2 MG / ML 2ML Vial IV PRN (14:25)
[2024-06-26] MEDS ORDERED: FentaNYL Citrate 50 MCG/ML 2 ML Injection IV PRN (14:25)
[2024-06-26] MEDS ORDERED: HYDROmorphone HCl/Pf 1MG SYR IV PRN (14:25)
[2024-06-26] MEDS ORDERED: HYDROmorphone HCl 0.5 MG/0.5 ML SYR IV PRN (14:25)
--- NOTE | 2024-06-26 15:33 | NUR ---
Dressing to procedure site clean, dry, intact with no visible drainage, swelling, erythema or bruising noted. Discharge instructions reviewed with patient. Patient verbalizes understanding. Copy given to patient to take home.
--- NOTE | 2024-06-26 15:47 | NUR ---
Discharged via wheelchair to private car for ride home.
== END 2024-06-26 15:45 | disposition home or self-care (01) ==
LOC: ORSCMMR 09:48 → ORD 12:30 → ORSCMMR 15:45 → ORSCSDS 07-06 12:45
PROVIDERS: Orthopaedic Surgery
PROC: 01N50ZZ Release Median Nerve, Open Approach (ICD-10-PCS; principal; 2024-06-26 11:00)
PROC: 01N40ZZ Release Ulnar Nerve, Open Approach (ICD-10-PCS; 2024-06-26 11:00)
DX: G56.22 Lesion of ulnar nerve, left upper limb (principal); G56.02 Carpal tunnel syndrome, left upper limb; I10 Essential (primary) hypertension; G47.33 Obstructive sleep apnea (adult) (pediatric); I48.91 Unspecified atrial fibrillation; E78.5 Hyperlipidemia, unspecified; Z79.01 Long term (current) use of anticoagulants; Z79.899 Other long term (current) drug therapy
CPT/HCPCS: J0690; J2704; J3010; J7120